=== PATIENT | male | born 1970 | race Caucasian/White ===

== ENCOUNTER 2020-12-24 20:45 | Emergency (ER) | payer OTHER, MEDICARE ==
[~2020-12-24] VITALS: Ht 182.9 cm; Wt 64.9 kg
[2020-12-25] MEDS ORDERED: HYDHCL25 PO (08:10)
[2020-12-25] MEDS ORDERED: HYDPAM50 PO (08:15)
== END 2020-12-25 01:08 | disposition home or self-care (01) ==
LOC: ER 20:45
DX: Z00.00 Encounter for general adult medical examination without abnormal findings (principal); F17.200 Nicotine dependence, unspecified, uncomplicated
CPT/HCPCS: 99284

== ENCOUNTER 2020-12-25 06:47 | Emergency (ER) | payer OTHER, MEDICARE ==
[~2020-12-25] VITALS: Ht 175.3 cm; Wt 64.9 kg
[2020-12-25] MEDS ORDERED: HYDHCL25 PO (08:10)
[2020-12-25] MEDS ORDERED: HYDPAM50 PO (08:15)
== END 2020-12-25 08:29 | disposition home or self-care (01) ==
LOC: ER 06:47
DX: F41.9 Anxiety disorder, unspecified (principal); K13.0 Diseases of lips; F17.210 Nicotine dependence, cigarettes, uncomplicated; Z76.0 Encounter for issue of repeat prescription
CPT/HCPCS: 99282